=== PATIENT | male | born 2000 | race Caucasian/White ===

== ENCOUNTER 2022-07-19 12:21 | Emergency (ER) | payer MEDICAID, OTHER ==
[~2022-07-19] VITALS: Ht 180.3 cm; Wt 79.4 kg
[2022-07-19] MEDS ORDERED: IBUP200C29 PO (12:34)
[2022-07-19] MEDS ORDERED: BENA25CA4 PO (12:34)
[2022-07-19] MEDS ORDERED: AMOX500C (12:34)
[2022-07-19] MEDS ORDERED: ACET-683 PO (12:34)
[2022-07-19] MEDS ORDERED: NAPR-837 PO (14:13)
[2022-07-19 14:18] VITALS: BP 142/68
== END 2022-07-19 14:25 | disposition home or self-care (01) ==
LOC: M ED 12:21
DX: M54.12 Radiculopathy, cervical region (principal); G56.02 Carpal tunnel syndrome, left upper limb; R20.2 Paresthesia of skin; Z79.899 Other long term (current) drug therapy

== ENCOUNTER → 2022-08-03 | Outpatient (CLI) | payer OTHER ==
[~2022-08-03] MED LIST: ACET-683 PO; AMOX500C; BENA25CA4 PO; IBUP200C29 PO; NAPR-837 PO
== END ==
LOC: M SOG 09:13
PROVIDERS: ATTEND Orthopaedic Surgery
DX: M25.512 Pain in left shoulder (principal)